=== PATIENT | female | born 1985 | race Hispanic/Latino ===

== ENCOUNTER 2022-05-09 06:17 | Emergency (ER) | payer OTHER ==
[2022-05-09] MEDS ORDERED: diphenhydrAMINE 25 MG CAP ONE (06:59)
== END 2022-05-09 06:55 | disposition home or self-care (01) ==
LOC: BURERS 06:17
DX: L27.0 Generalized skin eruption due to drugs and medicaments taken internally (principal)
CPT/HCPCS: 99282